=== PATIENT | female | born 1950 | race Caucasian/White ===

== ENCOUNTER 2018-05-27 10:32 | Emergency (ER) | payer MEDICARE, OTHER ==
--- NOTE | 2018-05-27 11:10 | EDM.PDOC ---
ED HPI GENERAL MEDICAL PROBLEM - General Chief Complaint: General Stated Complaint: DIZZY Time Seen by Provider: 05/27/18 10:32 Source of Information: Reports: Patient History Limitations: Reports: No Limitations - History of Present Illness INITIAL COMMENTS - FREE TEXT/NARRATIVE: Emergency department with complaints of dizziness and right ear discomfort. Patient states that it started approximately 2 days ago when she started noticing her ear popping and crackling and had a pain sensation. Shortly thereafter she began to get dizzy every time she moved. She's not dizzy she lay still or if she focuses on the Wall with movement. She becomes dizzy if she moves her head to fast or from the laying position. She states this does occur in the past when she has had ear infections. She denies having any headache, loss of vision, chest pain, SOB, or edema. Quality: Reports: Dull Severity: Mild Improves with: Reports: Immobilization Worsens with: Reports: Movement Associated Symptoms: Reports: No Other Symptoms - Related Data Allergies Allergy/AdvReac Type Severity Reaction Status Date / Time amoxicillin [From Augmentin] Allergy Hives Verified 05/27/18 10:43 clavulanic acid Allergy Hives Verified 05/27/18 10:43 [From Augmentin] meperidine Allergy Cannot Verified 05/27/18 10:43 Remember metoprolol Allergy Cannot Verified 05/27/18 10:43 Remember Penicillins Allergy Cannot Verified 05/27/18 10:43 Remember sulfamethoxazole Allergy Cannot Verified 05/27/18 10:43 Remember Home Meds: Home Meds Amoxicillin 500 mg PO BID #20 tablet 05/27/18 [Rx] Fluconazole [Diflucan] 150 mg PO ONETIME #1 tab 05/27/18 [Rx] Fluticasone/Salmeterol [Advair 250-50 Diskus] 1 puff DAILY PRN 05/27/18 [History ] Levothyroxine [Synthroid] 100 mcg DAILY 05/27/18 [History] amLODIPine [Norvasc] 2.5 mg DAILY 05/27/18 [History] atorvaSTATin [Lipitor] 10 mg DAILY 05/27/18 [History] Past Medical History Cardiovascular History: Reports: High Cholesterol, Hypertension Respiratory History: Reports: Asthma, Pneumonia, Recurrent Gastrointestinal History: Reports: [employer] History: Reports: Other (See Below) Musculoskeletal History: Reports: Osteoporosis, RA Other Musculoskeletal History: COMPRESSION FRACTURE Psychiatric History: Reports: Anxiety Endocrine/Metabolic History: Reports: Hypothyroidism - Past Surgical History HEENT Surgical History: Reports: Adenoidectomy, Tonsillectomy Female Surgical History: Reports: Hysterectomy, Tubal Ligation, Other (See Below) Other Female Surgeries/Procedures: bladder repair X2. breast biopsy Social & Family History - Tobacco Use Smoking Status *Q: Never Smoker - Recreational Drug Use Recreational Drug Use: No ED ROS GENERAL - Review of Systems Review Of Systems: See Below Constitutional: Reports: No Symptoms HEENT: Reports: Ear Pain, Sinus Problem. Denies: Eye Pain, Glasses, Hearing Loss, Nosebleed, Throat Swelling Respiratory: Reports: No Symptoms Cardiovascular: Reports: No Symptoms Endocrine: Reports: No Symptoms Musculoskeletal: Reports: No Symptoms Skin: Reports: No Symptoms Neurological: Reports: No Symptoms Psychiatric: Reports: No Symptoms Hematologic/Lymphatic: Reports: No Symptoms ED EXAM, GENERAL - Physical Exam Exam: See Below Exam Limited By: No Limitations General Appearance: Alert, WD/WN, No Apparent Distress Eye Exam: Bilateral Eye: EOMI, PERRL Ear Exam: Right Ear: TM Bulging, Left Ear: Erythema, Tenderness, TM Red, Bilateral Ear: Auricle Normal, Canal Normal, Swelling Nose: Normal Inspection, Normal Mucosa, No Blood Throat/Mouth: Normal Inspection, Normal Lips, Normal Teeth, Normal Oropharynx Head: Atraumatic, Normocephalic Neck: Normal Inspection, Supple, Non-Tender Respiratory/Chest: No Respiratory Distress, No Accessory Muscle Use Cardiovascular: Normal Peripheral Pulses, Regular Rate, Rhythm, No Edema Extremities: Normal Inspection, Normal Range of Motion Neurological: Alert, Oriented Psychiatric: Normal Affect, Normal Mood Skin Exam: Warm, Dry Course - Vital Signs Last Recorded V/S: Last Vital Signs Temp 36.2 C 05/27/18 10:35 Pulse 106 H 05/27/18 10:35 Resp 16 05/27/18 10:35 BP 174/89 H 05/27/18 10:35 Pulse Ox 97 05/27/18 10:35 Departure - Departure Time of Disposition: 11:05 Disposition: Home, Self-Care 01 Condition: Good Clinical Impression: Fluid collection of middle ear Otitis media Qualifiers: Otitis media type: suppurative Chronicity: acute Laterality: left Recurrence: non-recurrent Spontaneous tympanic membrane rupture: without spontaneous rupture Qualified Code(s): H66.002 - Acute suppurative otitis media without spontaneous rupture of ear drum, left ear - Discharge Information *PRESCRIPTION DRUG MONITORING PROGRAM REVIEWED*: Not Applicable *COPY OF PRESCRIPTION DRUG MONITORING REPORT IN PATIENT [place]: Not Applicable Prescriptions: Amoxicillin 500 mg PO BID #20 tablet Fluconazole [Diflucan] 150 mg PO ONETIME #1 tab Instructions: Otitis Media With Effusion, Pediatric, Probiotics Forms: ED Department Discharge Additional Instructions: 1. rest 2. raise from the seating or laying position slowly 3. Complete all antibiotics even if feeling better 4. Take a probiotic while on antibiotics to help with GI digestion and prevent from further infection 5. Use over the counter Flonase twice a day for 4 days to help reduce the fluid accumulation 6. Follow up as needed 7. Activity and diet as tolerated 8. Call with any questions or concerns. - Assessment/Plan Assessment:: 1. Otitis media left ear 2. middle ear effusion right ear Plan: 1. oral antibiotics given. Pt normally take amoxicillin when diagnosed with an ear infection. It is listed as an allergy but she is insistent that she has had no reactions in the past and would like this again. 2. Flonase prescribed to help reduce the effusion 3. Pt also advised to take a probiotic while on the abx 4. Follow, activity, safety, and diet information provided prior to discharge 5. All questions and concerns addressed prior to discharge.
== END 2018-05-27 11:20 | disposition home or self-care (01) ==
LOC: VM.ED 10:32
DX: H66.002 Acute suppurative otitis media without spontaneous rupture of ear drum, left ear (principal); H74.8X1 Other specified disorders of right middle ear and mastoid; E78.00 Pure hypercholesterolemia, unspecified; I10 Essential (primary) hypertension; J45.909 Unspecified asthma, uncomplicated; K21.9 Gastro-esophageal reflux disease without esophagitis; E03.9 Hypothyroidism, unspecified; Z88.1 Allergy status to other antibiotic agents; Z88.8 Allergy status to other drugs, medicaments and biological substances; Z88.0 Allergy status to penicillin; Z79.899 Other long term (current) drug therapy; Z88.2 Allergy status to sulfonamides
CPT/HCPCS: 99283; 99283-GF